=== PATIENT | female | born 1965 | race Caucasian/White ===

== ENCOUNTER 2019-05-05 16:03 | Emergency (ER) | payer BC ==
[2019-05-05] MEDS ORDERED: SODIUM CHLORIDE 0.9% 1,000 ML IV STA (16:30)
[2019-05-05] MEDS ORDERED: ONDANSETRON 4 MG/2 ML VIAL IVP STA (16:30)
--- NOTE | 2019-05-05 16:57 | ED ---
General Adult HPI - General Chief complaint: Nausea/Vomiting/Diarrhea Stated complaint: Abd Pain Time Seen by Provider: 05/05/19 16:29 Source: patient Mode of arrival: ambulatory Limitations: no limitations - History of Present Illness Initial comments: Dictation was produced using [employer] dictation software. please excuse any grammatical, word or spelling errors. Chief Complaint: 54-year-old female presents with nausea, diarrhea and diffuse abdominal pain 5 days History of Present Illness: Is a 54-year-old female presents with the affirmation symptoms. 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 States that there have been some kids that have been sick in her class. He has diffuse abdominal pain. States that her symptoms are especially worse after consuming by mouth. States that she's been having watery diarrhea approximately 3-4 episodes. Over the past 5 days her symptoms have been relatively stable without any worsening or improvement. Patient states she had a similar episode several years ago that was self-limiting and temporary. Denies any constitutional symptoms. She denies any blood in her stool. No recent antibiotics. No recent travel. No concerning food poisoning. She has history of , cholecystectomy and hysterectomy. The ROS documented in this emergency department record has been reviewed and confirmed by me. Those systems with pertinent positive or negative responses have been documented in the HPI. All other systems are other negative and/or noncontributory. PHYSICAL EXAM: General Impression: Alert and oriented x3, not in acute distress HEENT: Normocephalic atraumatic, extra-ocular movements intact, pupils equal and reactive to light bilaterally, dry mucous membranes Cardiovascular: Heart regular rate and rhythm, S1&S2 audible, no murmurs, rubs or gallops Chest: Lungs clear to auscultation bilaterally, no rhonchi, no wheeze, no rales Abdomen: Bowel sounds present, abdomen soft, diffuse tenderness to palpation, non-distended, no organomegaly, no pain at McBurney's, no left lower quadrant tenderness, no Dougherty sign Musculoskeletal: Pulses present and equal in all extremities, no peripheral edema Motor: no focal deficits noted Neurological: CN II-XII grossly intact, no focal motor or sensory deficits noted Skin: Intact with no visualized rashes Psych: Normal affect and mood ED course: 54-year-old female presents with diffuse abdominal pain, nausea and diarrhea. Signs upon arrival are within acceptable limits. Laboratory evaluation obtained. CBC, metabolic panel, urinalysis is unremarkable. X-ray is nonspecific without any signs of obstructions or in traperitoneal air. Patient given intravenous fluids and emetics. She reports feeling slightly improved although she still has some mild abdominal pain. At this point clinical presentation is likely from gastroenteritis. She will be given antiemetics, antispasmodic and antidiarrheal medication. She still to uses a when necessary basis. Advised follow-up with primary care physician. Return parameters discussed. - Related Data Home Medications Medication Instructions Recorded Confirmed Estrogens, Conjugated Cream 1 applic TOPICAL DIRECTED 12/09/14 03/30/15 [Premarin Cream] Lansoprazole [Prevacid] 1 cap PO DAILY 12/09/14 03/30/15 Previous Rx's Medication Instructions Recorded Acetaminophen-Codeine 300-30mg 1 each PO Q6H PRN #20 tablet 12/09/14 [Tylenol #3] Cyclobenzaprine [Flexeril] 1 - 2 tab PO TID #20 tablet 12/09/14 Ibuprofen [Motrin] 800 mg PO Q6HR PRN #30 tab 12/09/14 HYDROcodone/APAP 5-325MG [[place] 1 each PO Q6HR PRN #20 tab 03/30/15 5-325] Ibuprofen [Motrin] 800 mg PO Q8HR PRN #30 tab 03/30/15 Orphenadrine [Norflex] 100 mg PO Q12H PRN #6 tablet.er 03/30/15 Dicyclomine [Bentyl] 10 mg PO TID #12 capsule 05/05/19 Loperamide HCl [Loperamide] 2 mg PO TID #12 capsule 05/05/19 Ondansetron Odt [Zofran Odt] 4 mg PO Q8HR PRN #12 tab 05/05/19 Allergies Allergy/AdvReac Type Severity Reaction Status Date / Time atorvastatin calcium AdvReac Unknown Verified 05/05/19 16:11 [From Lipitor] [id number]-[id number] Reductase AdvReac Nausea & Verified 05/05/19 16:11 Inhibitor Vomiting Review of Systems ROS Statement: Those systems with pertinent positive or pertinent negative responses have been documented in the HPI. ROS Other: All systems not noted in ROS Statement are negative. Past Medical History Past Medical History: GERD/Reflux, Hypertension History of Any Multi-Drug Resistant Organisms: None Reported Past Surgical History: Section, Cholecystectomy, Hysterectomy, Orthopedic Surgery Additional Past Surgical History / Comment(s): lasix eye surgery Past Psychological History: No Psychological Hx Reported Smoking Status: Never smoker Past Alcohol Use History: None Reported Past Drug Use History: None Reported General Exam Limitations: no limitations Course Vital Signs 05/05/19 16:09 Temperature 97.8 F Pulse Rate 86 Respiratory 16 Rate Blood Pressure 139/81 O2 Sat by Pulse 96 Oximetry Medical Decision Making - Lab Data Result diagrams: 05/05/19 16:45 05/05/19 16:45 Lab Results 05/05/19 05/05/19 05/05/19 Range/Units 16:45 16:45 16:45 WBC 7.1 (3.8-10.6) k/uL RBC 4.83 (3.80-5.40) m/uL Hgb 14.9 (11.4-16.0) gm/dL Hct 43.6 (34.0-46.0) % MCV 90.2 (80.0-100.0) fL MCH 30.9 (25.0-35.0) pg MCHC 34.2 (31.0-37.0) g/dL RDW 12.2 (11.5-15.5) % Plt Count 316 (150-450) k/uL Neutrophils % 54 % Lymphocytes % 33 % Monocytes % 6 % Eosinophils % 5 % Basophils % 1 % Neutrophils # 3.8 (1.3-7.7) k/uL Lymphocytes # 2.3 (1.0-4.8) k/uL Monocytes # 0.4 (0-1.0) k/uL Eosinophils # 0.3 (0-0.7) k/uL Basophils # 0.1 (0-0.2) k/uL Sodium 139 (137-145) mmol/L Potassium 4.1 (3.5-5.1) mmol/L Chloride 104 (98-107) mmol/L Carbon Dioxide 27 (22-30) mmol/L Anion Gap 8 mmol/L BUN 12 (7-17) mg/dL Creatinine 0.65 (0.52-1.04) mg/dL Est GFR (CKD-EPI)AfAm >90 (>60 ml/min/1.73 sqM) Est GFR (CKD-EPI)NonAf >90 (>60 ml/min/1.73 sqM) Glucose 85 (74-99) mg/dL Calcium 9.6 (8.4-10.2) mg/dL Total Bilirubin 0.2 (0.2-1.3) mg/dL AST 41 H (14-36) U/L ALT 51 (9-52) U/L Alkaline Phosphatase 85 (38-126) U/L Total Protein 6.9 (6.3-8.2) g/dL Albumin 4.3 (3.5-5.0) g/dL Lipase 79 (23-300) U/L Urine Color Yellow Urine Appearance Cloudy H (Clear) Urine pH 6.0 (5.0-8.0) Ur Specific [place] 1.020 (1.001-1.035) Urine Protein Negative (Negative) Urine Glucose (UA) Negative (Negative) Urine Ketones Negative (Negative) Urine Blood Negative (Negative) Urine Nitrite Negative (Negative) Urine Bilirubin Negative (Negative) Urine Urobilinogen <2.0 (<2.0) mg/dL Ur Leukocyte Esterase Negative (Negative) Urine RBC 5 (0-5) /hpf Urine WBC 11 H (0-5) /hpf Ur Squamous Epith Cells 5 H (0-4) /hpf Amorphous Sediment Few H (None) /hpf Urine Bacteria Moderate H (None) /hpf Hyaline Casts 3 H (0-2) /lpf Urine Mucus Moderate H (None) /hpf Disposition Clinical Impression: Gastroenteritis Disposition: HOME SELF-CARE Condition: Good Instructions (If sedation given, give patient instructions): Acute Diarrhea (ED) Prescriptions: Dicyclomine [Bentyl] 10 mg PO TID #12 capsule Loperamide HCl [Loperamide] 2 mg PO TID #12 capsule Ondansetron Odt [Zofran Odt] 4 mg PO Q8HR PRN #12 tab PRN Reason: Nausea Is patient prescribed a controlled substance at d/c from ED?: No Referrals: Maggy Camara DO [Primary Care Provider] - 1-2 days Time of Disposition: 17:50
--- NOTE | 2019-05-05 17:18 | XR ---
EXAMINATION TYPE: XR KUB DATE OF EXAM: 05/05/2019 COMPARISON: None INDICATION: Abdomen pain nausea vomiting diarrhea TECHNIQUE: Single view abdomen upright view FINDINGS: There is a nonspecific bowel gas pattern. Some small bowel gas is present. No suspicious air-fluid le vels or differential air-fluid levels are present. Nonspecific colonic bowel gas is present. Psoas margins are normal. No organomegaly is present. IMPRESSION: 1. Nonspecific abdomen
[2019-05-05 17:22] LABS: Amorphous Sediment,Urine Few /hpf; Appearance,Urine Cloudy (Clear); Bacteria,Urine Moderate /hpf; Basophils # (A) 0.1 k/uL (0-0.2); Basophils % (A) 1 %; Bilirubin,Urine Negative (Negative); Blood,Urine Negative (Negative); Color,Urine Yellow; Eosinophils # (A) 0.3 k/uL (0-0.7); Eosinophils % (A) 5 %; Glucose,Urine (UA) Negative (Negative); HCT 43.6 % (34.0-46.0); HGB 14.9 gm/dL (11.4-16.0); Hyaline Casts,Urine 3 /lpf (0-2); Ketones,Urine Negative (Negative); Leukocyte Esterase,Urine Negative (Negative); Lymphocytes # (A) 2.3 k/uL (1.0-4.8); Lymphocytes % (A) 33 %; MCH 30.9 pg (25.0-35.0); MCHC 34.2 g/dL (31.0-37.0); MCV 90.2 fL (80.0-100.0); Mean Platelet Volume 6.4; Monocytes # (A) 0.4 k/uL (0-1.0); Monocytes % (A) 6 %; Mucus,Urine Moderate /hpf; Neutrophils # (A) 3.8 k/uL (1.3-7.7); Neutrophils % (A) 54 %; Nitrite,Urine Negative (Negative); Platelet Count 316 k/uL (150-450); Protein,Urine Negative (Negative); RBC 4.83 m/uL (3.80-5.40); RBC,Urine 5 /hpf (0-5); RDW 12.2 % (11.5-15.5); Squamous Epithelial Cell,Urine 5 /hpf (0-4); Urobilinogen,Urine <2.0 mg/dL (<2.0); WBC 7.1 k/uL (3.8-10.6); WBC,Urine 11 /hpf (0-5)
[2019-05-05 17:31] LABS: ALT 51 U/L (9-52); AST 41 U/L (14-36); African American GFR (CKD) >90 (>60 ml/min/1.73 sqM); Albumin 4.3 g/dL (3.5-5.0); Alkaline Phosphatase 85 U/L (38-126); Anion Gap 8 mmol/L; Blood Urea Nitrogen 12 mg/dL (7-17); Calcium 9.6 mg/dL (8.4-10.2); Carbon Dioxide 27 mmol/L (22-30); Chloride 104 mmol/L (98-107); Glucose 85 mg/dL (74-99); Potassium 4.1 mmol/L (3.5-5.1); Sodium 139 mmol/L (137-145); Total Bilirubin 0.2 mg/dL (0.2-1.3); Total Protein 6.9 g/dL (6.3-8.2)
[2019-05-05 18:28] VITALS: BP 126/75; PULSE 72; RESP 17; TEMP 98
== END 2019-05-05 18:29 | disposition home or self-care (01) ==
LOC: EC 16:03
DX: K52.9 Noninfective gastroenteritis and colitis, unspecified (principal); K21.9 Gastro-esophageal reflux disease without esophagitis; Z88.8 Allergy status to other drugs, medicaments and biological substances; Z79.890 Hormone replacement therapy; Z79.899 Other long term (current) drug therapy; Z90.49 Acquired absence of other specified parts of digestive tract; Z90.710 Acquired absence of both cervix and uterus
CPT/HCPCS: 36415; 80053; 83690; 85025; 81001; 74018; 99284; 96374; 96361 ×2; J2405

== ENCOUNTER 2020-08-14 17:18 | Emergency (ER) | payer BC ==
[2020-08-14 17:37] VITALS: BP 138/84; PULSE 104; RESP 18; TEMP 98.9
--- NOTE | 2020-08-14 18:02 | ED ---
Skin/Abscess/FB HPI - General Chief complaint: Skin/Abscess/Foreign Body Stated complaint: boils Time Seen by Provider: 08/14/20 17:39 Source: patient Mode of arrival: ambulatory Limitations: no limitations - History of Present Illness Initial comments: 55-year-old white female in no acute distress posterior emergency room today with recurrent abscess. Patient states last treated 2 months ago with clindamycin by PMD. Pt has three abscesses, one to left lower abdomen, one to left side of mouth and another to inner right thigh. Patient has never been diagnosed with hydradenitis. Patient has allergy to pcn. - Related Data Home Medications Medication Instructions Recorded Confirmed Escitalopram [Lexapro] 10 mg PO DAILY 08/14/20 08/14/20 Lisinopril-Hctz 20-25 mg 1 tab PO DAILY 08/14/20 08/14/20 [Zestoretic 20-25] Omeprazole Magnesium [PriLOSEC OTC] 20 mg PO DAILY 08/14/20 08/14/20 Rosuvastatin [Crestor] 10 mg PO DAILY 08/14/20 08/14/20 Previous Rx's Medication Instructions Recorded Clindamycin HCl 300 mg PO Q6HR #40 cap 08/14/20 Mupirocin 2% Oint [Bactroban 2% 1 applic TOPICAL TID #22 gm 08/14/20 Oint] Allergies Allergy/AdvReac Type Severity Reaction Status Date / Time atorvastatin calcium AdvReac Memory Verified 08/14/20 18:02 [From Lipitor] Penicillins AdvReac Nausea & Verified 08/14/20 18:02 Vomiting & Diarrhea Udkxtle-Ejm-Sjv Reductase AdvReac Nausea & Verified 08/14/20 18:02 Inhibitor Vomiting/Memory Review of Systems ROS Statement: Those systems with pertinent positive or pertinent negative responses have been documented in the HPI. ROS Other: All systems not noted in ROS Statement are negative. Past Medical History Past Medical History: GERD/Reflux, Hypertension History of Any Multi-Drug Resistant Organisms: None Reported Past Surgical History: Section, Cholecystectomy, Hysterectomy, Orthopedic Surgery Additional Past Surgical History / Comment(s): lasix eye surgery Past Psychological History: Anxiety Smoking Status: Former smoker Past Alcohol Use History: Occasional Past Drug Use History: None Reported General Exam - General Exam Comments Initial Comments: Currently has a 1 x 3 cm abscess with an erythematous base tender to touch and is draining to lower abdomen under panus. Has since developed another on the left side of mouth which is scabbed over with an errythematous base. A third to the right inner thigh which is not draining and is scabbed over, nontender. patient states PMD and told her in the past when he developed she is coming to the emergency room for antibiotics. Patient has never been diagnosed with hydradenitis. Patient has no ALLERGIES to antibiotics Limitations: no limitations General appearance: alert, in no apparent distress Head exam: Present: atraumatic Eye exam: Present: normal appearance, EOMI Respiratory exam: Present: normal lung sounds bilaterally. Absent: respiratory distress, wheezes, rales, rhonchi, stridor Cardiovascular Exam: Present: regular rate, normal rhythm, normal heart sounds. Absent: systolic murmur, diastolic murmur, rubs, gallop, clicks GI/Abdominal exam: Present: soft, normal bowel sounds. Absent: distended, tenderness, guarding, rebound, rigid Psychiatric exam: Present: normal affect, normal mood Skin exam: Present: warm, dry, normal color, other Course Vital Signs 08/14/20 17:33 Temperature 98.9 F Pulse Rate 104 H Respiratory 18 Rate Blood Pressure 138/84 O2 Sat by Pulse 99 Oximetry Medical Decision Making - Medical Decision Making patient with a history of abscesses in the past and recently treated 2 months ago with clindamycin 300 mg 4 times a day. patient also prescribed Bactroban intranasally bid. Patient also directed to buy Hibiclens shower with daily to prevent recurrence.The patient follow up with primary care doctor within 1 week and return to the emergency room for fever or worsening symptoms. Disposition Clinical Impression: Abscess Disposition: HOME SELF-CARE Condition: Stable Instructions (If sedation given, give patient instructions): Abscess (ED) Additional Instructions: please return to the emergency room with any worsening symptoms, fever, or increased pain. Take medication as prescribed. use Hibiclens soap to shower daily to prevent recurrence. Prescriptions: Mupirocin 2% Oint [Bactroban 2% Oint] 1 applic TOPICAL TID #22 gm Clindamycin HCl 300 mg PO Q6HR #40 cap Is patient prescribed a controlled substance at d/c from ED?: No Referrals: Maggy Camara, [Primary Care Provider] - 1-2 days
== END 2020-08-14 19:03 | disposition home or self-care (01) ==
LOC: EC 17:18
DX: K12.2 Cellulitis and abscess of mouth (principal); L02.415 Cutaneous abscess of right lower limb; L02.211 Cutaneous abscess of abdominal wall; I10 Essential (primary) hypertension; K21.9 Gastro-esophageal reflux disease without esophagitis; F41.9 Anxiety disorder, unspecified; Z79.899 Other long term (current) drug therapy; Z88.0 Allergy status to penicillin; Z88.8 Allergy status to other drugs, medicaments and biological substances; Z90.49 Acquired absence of other specified parts of digestive tract; Z87.891 Personal history of nicotine dependence; Z90.710 Acquired absence of both cervix and uterus
CPT/HCPCS: 99283

== ENCOUNTER → 2020-12-07 | Outpatient (CLI) | payer BC ==
--- NOTE | 2020-12-07 21:34 | CT ---
EXAMINATION TYPE: CT sinus wo con DATE OF EXAM: 12/07/2020 COMPARISON: None HISTORY: Chronic sinusitis, headaches, ear infections. Pt states prior hx tubes in ears CT DLP: 416.30 mGycm CONTRAST: None The paranasal sinuses are examined in the axial plane at 2 mm thick sections. Reconstructed images i n the coronal plane were obtained. Small amount of mucosal thickening is along the medial left maxillary wall. The ethmoid air cells ar e clear. The sphenoid sinuses are clear. The frontal sinuses are clear. The septum is evaluated. Significant septal deviation is evident. Small left abebe bullosa is presen t. The ostiomeatal units are patent. Right mastoid air cells are underpneumatized. Left mastoid air cells are clear. IMPRESSIONS: 1. Small retention cyst or mucosal thickening medial wall left maxillary sinus. 2. Remaining paranasal sinuses are clear.
== END | disposition home or self-care (01) ==
LOC: RADCTMAIN 17:44
PROVIDERS: ATTEND Otolaryngology
DX: J32.9 Chronic sinusitis, unspecified (principal)
CPT/HCPCS: 70486

== ENCOUNTER → 2021-10-29 | Outpatient (CLI) | payer BC ==
--- NOTE | 2021-10-30 11:26 | CT ---
EXAMINATION TYPE: CT sinus wo con DATE OF EXAM: 10/29/2021 COMPARISON: 12/07/2020 HISTORY: Chronic sinusitis CT DLP: 506.58 mGycm. Automated Exposure Control for Dose Reduction was Utilized. TECHNIQUE: CT scan of the sinuses is performed without contrast, axial images are obtained, coronal r eformatted images are also reviewed. FINDINGS: There is a tiny subcentimeter polyp or mucous retention cyst along the medial wall the left maxillary sinus similar to prior exam. Mild mucosal thickening involving the ethmoid air cells noted . Sphenoid sinus and frontal sinus demonstrate normal aeration. No air-fluid levels. The ostiomeatal complex is patent bilaterally on the coronal images. Visualized portion of mastoid air cells show no abnormal opacification. The globes are intact bilate rally. IMPRESSION: 1. Mild chronic sinusitis.
--- NOTE | 2021-10-30 11:45 | CT ---
EXAMINATION TYPE: CT soft tissue neck w con DATE OF EXAM: 10/29/2021 5:13 PM COMPARISON: None HISTORY: Submandibular swelling, neck swelling CT DLP: 764.13 mGycm Automated exposure control for dose reduction was used. CONTRAST: CT scan of the neck is performed following with IV Contrast, patient injected with 100 mL of Isovue 3 00. Axial images are obtained, coronal and sagittal reformatted images are reviewed. FINDINGS: Airway: No gross abnormality seen. Parotid/submandibular glands: No gross abnormality seen. Carotid/Vascular Structures: Patent Osseous Structures: Multilevel hypertrophic and degenerative change most marked at C5-6 and C6-C7. Other: Shotty adenopathy seen in the soft tissue compartments of the neck. IMPRESSION: No acute process.
== END | disposition home or self-care (01) ==
LOC: RADCTMAIN 16:35
PROVIDERS: ATTEND Otolaryngology
DX: J32.9 Chronic sinusitis, unspecified (principal); R22.1 Localized swelling, mass and lump, neck
CPT/HCPCS: 70491; 70486; Q9967

== ENCOUNTER → 2021-11-29 | Outpatient (CLI) | payer BC | END | disposition home or self-care (01) | LOC: LABPAT 17:05 | PROVIDERS: ATTEND Otolaryngology | DX: Z01.818 Encounter for other preprocedural examination (principal); Z01.810 Encounter for preprocedural cardiovascular examination | CPT/HCPCS: 93005 ==

== ENCOUNTER → 2024-10-28 | Outpatient (CLI) | payer BC ==
[2024-10-28 21:07] LABS: ALT 50 U/L (8-44); AST 32 U/L (13-35); Albumin 4.6 g/dL (3.8-4.9); Albumin/Globulin Ratio 1.92 Ratio (1.60-3.17); Alkaline Phosphatase 122 U/L (41-126); BUN/Creat Ratio 19.14 Ratio (12.00-20.00); Blood Urea Nitrogen 13.4 mg/dL (9.0-27.0); Calcium 9.5 mg/dL (8.7-10.3); Carbon Dioxide 22.4 mmol/L (21.6-31.8); Chloride 100 mmol/L (96-109); Chol/HDL Ratio 4.02 Ratio; Globulin 2.4 g/dL (1.6-3.3); Glucose 96 mg/dL (70-110); LDL Cholesterol,Calculated 109.4 mg/dL (0.0-131.0); Potassium 4.6 mmol/L (3.5-5.5); Sodium 136 mmol/L (135-145); Total Bilirubin <0.2 mg/dL (0.3-1.2)
== END | disposition home or self-care (01) ==
LOC: LABWHC1 15:53
DX: Z53.9 Procedure and treatment not carried out, unspecified reason (principal)
CPT/HCPCS: 36415; 80053; 80061; 83036; 84443

== ENCOUNTER → 2024-12-09 | Outpatient (CLI) | payer BC ==
[2024-12-09 16:52] LABS: Chol/HDL Ratio 3.58 Ratio; LDL Cholesterol,Calculated 100.9 mg/dL (0.0-131.0)
[2024-12-09 16:53] LABS: ALT 38 U/L (8-44); AST 26 U/L (13-35)
== END | disposition home or self-care (01) ==
LOC: LABWHC1 09:26
PROVIDERS: ATTEND Internal Medicine Cardiovascular Disease
DX: E78.2 Mixed hyperlipidemia (principal)
CPT/HCPCS: 36415; 80061; 84450; 84460